=== PATIENT | male | born 1945 | race Caucasian/White ===

== ENCOUNTER 2020-06-15 06:53 | Observation (INO) ==
[2020-06-15] MEDS ORDERED: fentaNYL citrate 100 MCG/2 ML VIAL ONE (07:23)
[2020-06-15] MEDS ORDERED: MIDAZOLAM HCL 1 MG/ML 2ML VIAL ONE ×2 (07:23→09:52)
[2020-06-15] MEDS ORDERED: HEPARIN (PORCINE) 1000 UNIT/ML 10 ML (CATH LAB USE ONLY) ONE ×2 (07:23→10:16)
[2020-06-15] MEDS ORDERED: niCARdipine HCL INJ 2.5 MG/ML 10 ML AMP ONE (07:23)
[2020-06-15] MEDS ORDERED: NITROGLYCERIN/D5W 100MCG/ML 20ML SYR ONE (07:24)
--- NOTE | 2020-06-15 08:38 | Pre Anesthesia Assessment ---
Date of Service June 15, 2020 Pre Sedation Assessment Vital Signs Temp Pulse Resp BP Pulse Ox 06/15/20 07:13 36.6 C 59 L 16 190/79 H 98 Cardiovascular + regular rate and + regular rhythm + S1 normal and + S2 normal Respiratory normal respiratory effort, lungs clear to auscultation Pre-Sedation Airway Assessment Smoking Status: Former smoker Short, Thick Neck: No Oral Cavity: + WNL Mallampati Class: III ASA: ASA3 NPO Status Date of Last Intake of Fluids: 06/14/20 Time of Last Intake of Fluids: 17:30 Date of Last Intake of Solid Food: 06/14/20 Time of Last Intake of Solid Foods: 17:30 Procedure Planning Contraindications for Sedation: none Current Medications Reviewed: Yes Notes The planned sedation has been discussed with the patient. Informed Consent was obtained. I have identified the patient, determined the appropriateness of sedation and have assessed the patient immediately prior to the procedure. All medicine(s) and interventions are by my order.
--- NOTE | 2020-06-15 08:38 | History & Physical Bridge Note ---
Date of Service June 15, 2020 History & Physical Bridge Note I have examined the patient, reviewed the History & Physical and in the interval since the performance of the History & Physical I have noted the following changes of clinical significance: no changes noted
--- NOTE | 2020-06-15 09:39 | Cardiac Catheterization ---
Cardiac Cath Procedure Brief Procedure Date June 15, 2020 Pre-Procedure Diagnosis Pre-Procedure Diagnosis: Angina AUC Score AUC Score: 8 Post-Procedure Diagnosis Post-Procedure Diagnosis: Severe CAD Procedure(s) Performed Procedure(s) Performed: Coronary Angiography and Left Heart Cath Soil Analyst Robert Rosenthal MD Repairer Hairspring(s) Molina Malloy Estimated Blood Loss Estimated Blood Loss: <15cc Medication(s) Medication(s): Fentanyl (12.5 mcg IV x 2), Heparin (5000 units IV), Lidocaine 1% (Local infiltration access site), Nicardipine (250 mcg intra-arterial after arterial sheath insertion X 2) and Versed (1 mg IV) Preliminary Findings Impressions: Right dominant coronary anatomy Multivessel coronary stents present with patent stent left circumflex obtuse marginal, 40 to 50% in-stent stenosis mid right coronary artery, patent stent distal right coronary artery. Stent proximal left anterior descending with an eccentric ulcerated lesion at its proximal edge, 60% narrowing distal stent edge. [place] vessel disease with 70% mid LAD stenosis, 90% distal posterior descending artery with diffuse disease as noted below Systolic hypertension with mild elevation left end-diastolic pressure Coronary angiography: Diffuse calcification present Left main: Normal length and caliber with moderate calcification 10 to 20% mid vessel narrowing Left anterior descending: Type III in distribution. It gives rise to a large septal branch in its proximal portion to modest caliber diagonal branches in its midportion and courses to terminate beyond the apex. Within the left anterior descending there is an area of stenting in its proximal portion with an eccentric ulcerated 70 to 80% stenosis at the proximal edge of the stent. There is a 60% narrowing just distal to the stent. There is an additional 75% narrowing between the first and second diagonals. There is diffuse atherosclero sis throughout. The origin of the second diagonal is narrowed by 60% but this being a small vessel. Ramus intermedius: Modest caliber vessel narrowed by 50% at its origin Left circumflex: Moderately large but nondominant. Gives rise to a large multibranching obtuse marginal and then turns to give rise to a posterior lateral branch and an atrial branch along the AV groove. Within the left circum flex there is a 30% narrowing at its origin. The area of stenting within the proximal portion of the large obtuse marginal is widely patent. There are moderate luminal irregularities throughout Right coronary artery: Dominant distribution. Gives rise to 2 right ventricular branches in its midportion, and along the AV groove posterior descending artery and a small bifurcating posterior ventricular. There is a visible stent in the mid right coronary artery with a 50% in-stent stenosis in its midportion.. There is a widely patent stent in the distal right coronary artery proximal to its bifurcation. The distal posterior descending artery has a 90% stenosis. LV angiography: Not performed LVEDP 16-18 Recommendations: Patient will be referred for coronary mention left anterior descending, same setting Recommendations Recommendations: PCI without planned CABG Specimens Specimens: None Fluids (cc crystalloids) Fluids (cc crystalloids): 52 Anesthesia Start time: 54, stop time: 01 24 Procedural Complication(s) None Disposition PCI same setting
--- NOTE | 2020-06-15 11:32 | Cardiac Catheterization ---
Cardiac Cath Procedure Full Procedure Date June 15, 2020 Pre-Procedure Diagnosis Pre-Procedure Diagnosis: Angina AUC Score AUC Score: 8 Post-Procedure Diagnosis Post-Procedure Diagnosis: Severe CAD Procedure(s) Performed Procedure(s) Performed: Coronary Angiography and Left Heart Cath Clinical Resource Coordinator Robert Rosenthal MD Drop Hammer Setter Up(s) Molina Malloy Estimated Blood Loss Estimated Blood Loss: <15cc Medication(s) Medication(s): Fentanyl (12.5 mcg IV x 2), Heparin (5000 units IV), Lidocaine 1% (Local infiltration access site), Nicardipine (250 mcg intra-arterial after arterial sheath insertion X 2) and Versed (1 mg IV) Summary of Findings Impressions: Right dominant coronary anatomy Multivessel coronary stents present with patent stent left circumflex obtuse marginal, 40 to 50% in-stent stenosis mid right coronary artery, patent stent distal right coronary artery. Stent proximal left anterior descending with an eccentric ulcerated lesion at its proximal edge, 60% narrowing distal stent edge. [place] vessel disease with 70% mid LAD stenosis, 90% distal posterior descending artery with diffuse disease as noted below Systolic hypertension with mild elevation left end-diastolic pressure Coronary angiography: Diffuse calcification present Left main: Normal length and caliber with moderate calcification 10 to 20% mid vessel narrowing Left anterior descending: Type III in distribution. It gives rise to a large septal branch in its proximal portion to modest caliber diagonal branches in its midportion and courses to terminate beyond the apex. Within the left anterior descending there is an area of stenting in its proximal portion with an eccentric ulcerated 70 to 80% stenosis at the proximal edge of the stent. There is a 60% narrowing just distal to the stent. There is an additional 75% narrowing between the first and second diagonals. There is diffuse atherosclerosis throughout. The origin of the second diagonal is narrowed by 60% but this being a small vessel. Ramus intermedius: Modest caliber vessel narrowed by 50% at its origin Left circumflex: Moderately large but nondominant. Gives rise to a large multibranching obtuse marginal and then turns to give rise to a posterior lateral branch and an atrial branch along the AV groove. Within the left circumflex there is a 30% narrowing at its origin. The area of stenting within the proximal portion of the large obtuse marginal is widely patent. There are moderate luminal irregularities throughout Right coronary artery: Dominant distribution. Gives rise to 2 right ventricular branches in its midportion, and along the AV groove posterior descending artery and a small bifurcating posterior ventricular. There is a visible stent in the mid right coronary artery with a 50% in-stent stenosis in its midportion.. There is a widely patent stent in the distal right coronary artery proximal to its bifurcation. The distal posterior descending artery has a 90% stenosis. LV angiography: Not performed LVEDP 16-18 Recommendations: Patient will be referred for coronary mention left anterior descending, same setting Hemodynamics Rest Ao:: 178/64/108 Final Ao: 166/64/100 LV: 178/3/18 Recommendations Recommendations: PCI without planned CABG Specimens Specimens: None Radiation Exposure (mGy) 1320 Contrast (mls) 70 Fluids (cc crystalloids) Fluids (cc crystalloids): 52 Anesthesia Start time: 54, stop time: 01 24 Procedural Complication(s) None Disposition PCI same setting I attest to the content of the Intraoperative Record and any orders documented therein. Any exceptions are noted below. ACC Data: Disc Pad Grinding Machine Feeder Cardiac Status Clinical evaluation leading to the procedure Patient is a 75-year-old male with known multivessel coronary stenting last procedure 2008 with previously stable class I 2 functional capacity presented with new onset progression in anginal symptoms to class III plus despite aggressive medical therapy CAD Presenation: Stable angina Anginal Classification: CCS III (With acute change in anginal pattern) Heart Failure: No Cardiogenic Shock within 24 Hours: No Cardiac Arrest within 24 Hours: No Imaging Studies Past 6 Months: Yes Stress Studies Past 6 Months: No Standard Exercise Test: No Stress Echocardiogram: No Stress Testing w/SPECT MPI: No Cardiac CTA: No Coronary Anatomy Dominant: Right Left Main (% Stenosis): Mid (1020 with moderate calcification) LAD (% Stenosis): Proximal (7080 eccentric ulcerated plaque at proximal edge of stent) and Mid (75) D2 (% Stenosis): Ostial (60) Circumflex (% Stenosis): Ostial (30) OM1 (% Stenosis): Proximal (Widely patent stent) L PL1 (% Stenosis): Normal RCA (% Stenosis): Mid (Patent stent with 50% in-stent stenosis mid vessel) and Distal (Widely patent stent proximal to bifurcation) R PDA (% Stenosis): Mid (90 with vessel small beyond) Ramus (% Stenosis): Ostial (50 modest caliber vessel) Left Ventricular Angiography EF (%): N/A Diagnostic Physicians Name: Robert Rosenthal MD Status: Elective Closure Device Percutaneous Entry Location: Radial Recommendations: PCI without planned CABG
--- NOTE | 2020-06-15 11:34 | Post Anesthesia Assessment ---
Date of Service June 15, 2020 Post Sedation Assessment Vital Signs Temp Pulse Resp BP Pulse Ox 06/15/20 11:15 51 L 18 176/76 H 96 06/15/20 11:00 56 L 18 183/77 H 96 06/15/20 07:13 97.9 F 59 L 16 190/79 H 98 Recovery Score Activity: Moves 4 extremities Respiration: Deep Breath/Cough Circulation: +/-20% PreAnes Value Consciousness: Fully Awake Oxygen Saturation: > 92% On Room Air Post Anesthesia Score: 10 Discharge Sedation Level of Care: Fast Track Phase II Post Sedation Plan On clinical assessment, the patient appears to have tolerated the sedation without complications. Patient is recovering as anticipated. Patient will continue to be monitored by nursing and may be discharged when sedation discharge criteria are met per below protocol. Upon Completions of procedure up to 15 minutes continue every 5 minute vital signs and the P.A.R. score; then discharge to a Phase I or Fast Track to Phase II per the following guidelines: * Discharge Patient to appropriate Phase II area if PAR is 8 or greater or return to pre- procedure baseline. The post - procedure orders will be as directed. * If PAR score is less than 8 or not return to pre-procedure baseline then patient will follow Phase I monitoring till PAR is reached for Phase II. The Phase I may be done in procedure room or may call to secure a Phase I area. * If naloxone or flumazenil are used for reversal, hold in Phase I for continued monitoring from when last reversal dose was given for a minimum of 60 minutes or longer pending the nurse and/or physician discretion of patient condition before discharge to Phase II. Please call the Sedation Physician to re-evaluate and complete post-note for discharge to Phase II area. Do NOT discharge from procedure sedation or Phase 1 until post- sedation evaluation note is complete by procedure /sedation MD Sedation Discharge Instructions to be given to the patient at discharge to home.
[2020-06-15] MEDS ORDERED: ACETAMINOPHEN 325 MG TAB PO PRN (11:38)
[2020-06-15] MEDS ORDERED: NITROGLYCERIN SL 0.4 MG/TAB TAB SL PRN ×2 (11:38→12:30)
[2020-06-15] MEDS ORDERED: ONDANSETRON INJ 2 MG/ML 2 ML VIAL IV PRN (11:38)
--- NOTE | 2020-06-15 11:38 | Cardiac Catheterization ---
ACC Data: Corporate Recycling Manager Cardiac Status Clinical evaluation leading to the procedure CAD Presenation: Unstable angina Anginal Classification: CCS III Heart Failure: No Cardiogenic Shock within 24 Hours: No Cardiac Arrest within 24 Hours: No Imaging Studies Past 6 Months: No Stress Studies Past 6 Months: No Diagnostic Physicians Name: Klever Pisano MD Status: Elective Closure Device Percutaneous Entry Location: Radial Closure Device: Radial Band Recommendations: PCI without planned CABG PCI Indication: Unstable Angina Lesion Segment Name: proximal LAD Culprit Artery: Yes Stenosis Prior to Rx (%): 90 Chronic Total Occlusion: No IVUS: Yes FFR: No Pre-Procedure JEAN Flow: 3 Previously Treated Lesion: Timeframe: greater than 2 years Treated with Stent: Yes In-Stent Restenosis: Yes In-Stent Thrombosis: No Stent Type: NOLAN Yes Lesion Complexity: High/C Lesion Length (mm): 10 Thrombus Present: No Bifurcation Lesion: No Guidewire Across Lesion: Stenosis Post-Procedure (%): 70 Post-Procedure JEAN Flow: 3 Devices(s) Deployed: No Yes Lesion #2 Segment Name: mid LAD Culprit Artery: Yes Stenosis Prior to Rx (%): 60 Chronic Total Occlusion: No IVUS: No FFR: No Pre-Procedure JEAN Flow: 3 Previously Treated Lesion: No Lesion Complexity: Non-High/Non-C Lesion Length (mm): 25 Thrombus Present: No Bifurcation Lesion: Yes Guidewire Across Lesion: Yes Stenosis Post-Procedure (%): 30 Post-Procedure JEAN Flow: 3 Devices(s) Deployed: No Intraprocedure Events Significant Disection: No Perforation: No Cardiac Cath Procedure Full Procedure Date June 15, 2020 Pre-Procedure Diagnosis Pre-Procedure Diagnosis: Angina AUC Score AUC Score: 8 Post-Procedure Diagnosis Post-Procedure Diagnosis: Severe CAD and Unsuccessful PCI Procedure(s) Performed Procedure(s) Performed: Coronary Angiography, PTCA and IVUS Diet Clerk Klever Pisano MD Telecom Field Technician(s) Molina Malloy Estimated Blood Loss Estimated Blood Loss: <15cc Medication(s) Medication(s): Fentanyl (12.5 mcg IV x 2), Heparin (5000 units IV), Lidocaine 1% (Local infiltration access site), Nicardipine (250 mcg intra-arterial after arterial sheath insertion X 2) and Versed (1 mg IV) Summary of Findings Indication: Accelerating angina Access: 6 Fr right radial artery Catheters: EBU 3.5 guide Findings: For full details of patient's coronary angiography please see cath report dictated by Dr. Rosenthal. Briefly, patient found to have severe proximal LAD in-stent restenosis and moderate to severe mid LAD disease after prior stent. Decision to proceed with PCI. -- PCI -- Antithrombotic therapy: Heparin, clopidogrel Procedure: Left main cannulated with EBU 3.5 guide [place] wire placed into distal circumflex BMW wire passed across lesion into distal LAD [place] IVUS catheter placed into mid circumflex. Pullback revealed moderate eccentric calcified plaque at ostium (MLA 5.7 mm) [place] IVUS catheter then placed into LAD. Unable to pass proximal LAD in- stent restenosis. Ostium of LAD patent, left main without significant disease. Mid LAD lesion dilated with 2.5 compliant balloon Proximal LAD in-stent restenosis balloon with 2.5 compliant balloon but did not fully expand Further attempts at dilation with 3.0 NC balloon, 3.0 angiosculpt but lesion would not fully expand despite high atmosphere inflations. Patient remained chest pain-free, had JEAN-3 flow with no evidence of dissection. Decision made to abort further attempts at dilation or stenting. Arterial Closure: TR band Summary: 1. Unsuccessful PCI of proximal LAD in-stent restenosis due to inability to fully expand in-stent disease despite multiple high-pressure balloon inflations with noncompliant and cutting balloons. Residual stenosis 70%. 2. Angioplasty of mid LAD after prior stent with 2.5 balloon. Residual 30 to 40% disease at takeoff of small to medium caliber second diagonal with severe ostial stenosis. 3. Moderate ostial circumflex disease with eccentric, calcified plaque by IVUS. Recommendations: To PCU for continued monitoring Loaded with Clopidogrel 600mg Continue dual-antiplatelet therapy for at least 1 month Recommend maximizing antianginal therapy. If refractory symptoms consider PCI at tertiary center with atherectomy versus CABG evaluation. Hemodynamics Rest Ao:: 178/69/108 Final Ao: 180/76/142 LV: -- Recommendations Recommendations: PCI without planned CABG Specimens Specimens: None Radiation Exposure (mGy) -- Contrast (mls) 100 Anesthesia moderate Procedural Complication(s) None Disposition PCI same setting I attest to the content of the Intraoperative Record and any orders documented therein. Any exceptions are noted below. Personal Estate Manager Card Cath Procedure Codes Therapeutic Services & Ancillary Proc Procedure 1: Cardiovascular Tx and Anc Procedures: 32610 IV Ultrasound (Coronary or Graft) Procedure 2: Cardiovascular Tx and Anc Procedures: 78067 IV Ultrasound Ea addl vessel Moderate Sedation Procedure 1: Sedation/Anesthesia: 83493 Mod Sedation by the same physician; Ea [id number] Minutes Angioplasty Procedure 1: Cardiovascular Angioplasty Procedures: 95975 PTCA; Single mafor coronary artery or branch RC LC LD PG Care Time/CCT Total # of Minutes Spent Total Time Spent with Patient: Total time spent is greater than 50% in coordination of care (as documented) at patient's floor/unit and/or counseling patient:
[2020-06-15] MEDS ORDERED: CLOPIDOGREL BISULFATE 300 MG TAB PO STA (11:44)
[2020-06-15] MEDS ORDERED: SODIUM CHLORIDE 0.9% 1000ML 1,000 ML IV SCH (11:45)
[2020-06-15] MEDS ORDERED: CYCLOBENZAPRINE HCL 10 MG TAB PO PRN (12:25)
--- NOTE | 2020-06-15 13:05 | Electrocardiogram Report ---
Test Reason : Blood Pressure : / mmHG Vent. Rate : 049 BPM Atrial Rate : 049 BPM P-R Int : 180 ms QRS Dur : 086 ms QT Int : 468 ms P-R-T Axes : 046 -13 048 degrees QTc Int : 422 ms Sinus bradycardia Otherwise normal ECG When compared with ECG of 31-OCT-2007 09:47, Vent. rate has decreased BY [address] no longer depressed in Anterolateral leads Nonspecific T wave abnormality no longer evident in Inferior leads Confirmed by Dave Calle ([id number]) on 06/15/2020 1:05:45 PM Referred By: Robert Rosenthal Confirmed By:Dave Calle
[2020-06-15] MEDS ORDERED: allopurinoL 300 MG TAB PO ONE (14:15)
[2020-06-15] MEDS ORDERED: ASPIRIN 81 MG ECTAB PO ONE (14:15)
[2020-06-15] MEDS ORDERED: amLODIPine BESYLATE 5 MG TAB PO ONE (14:15)
[2020-06-15] MEDS ORDERED: PANTOprazole 40 MG TAB PO ONE (14:15)
[2020-06-15] MEDS ORDERED: PRAVASTATIN SOD 40 MG TAB PO ONE (14:15)
[2020-06-15] MEDS ORDERED: VERAPAMIL HCL 120 MG TABCR PO ONE (14:15)
[2020-06-15] MEDS ORDERED: LOSARTAN POTASSIUM 50 MG TAB PO ONE (14:15)
[2020-06-15] MEDS: KETOCONAZOLE 2% CR 15 GM TUBE EXT SCH (15:05)
[2020-06-15] MEDS ORDERED: hydrALAZINE HCL 20 MG/ML VIAL ONE (17:21)
[2020-06-15] MEDS ORDERED: hydrALAZINE HCL 20 MG/ML VIAL IV PRN (17:24)
[2020-06-15] MEDS ORDERED: TERAZOSIN HCL 5 MG CAP PO SCH (21:00)
[2020-06-16 06:16] LABS: Basophils # (auto) 0.02 K/uL (0-0.2); Basophils % (auto) 0.5 %; Eosinophils # (auto) 0.08 K/uL (0-0.5); Eosinophils % (auto) 1.9 %; Hematocrit (blood only) 37.6 % (42-52); Hemoglobin 12.9 g/dL (14.0-18.0); Lymphocytes # (auto) 1.76 K/uL (1.2-3.4); Lymphocytes % (auto) 41.9 %; Mean Corpuscular Hemoglobin 31.5 pg (25-34); Mean Corpuscular Hgb Conc 34.3 g/dL (32-36); Mean Corpuscular Volume 91.7 fL (80-100); Mean Platelet Volume 10.3 fL (7.4-10.4); Monocytes # (auto) 0.46 K/uL (0.11-0.59); Neutrophils # (auto) 1.88 K/uL (1.4-6.5); Neutrophils % (auto) 44.7 %; Platelet Count 190 K/uL (130-400); RDW Coefficient of Variation 12.9 % (11.5-14.5); RDW Standard Deviation 43.4 fL (36.4-46.3)
[2020-06-16 06:54] LABS: Calcium 8.3 mg/dl (8.5-10.1); Creatinine Clr Calc Pharmacy 75.7 ml/min; Est GFR (African American) 86.5; Est GFR (Non-African American) 74.6; Potassium 3.3 mmol/L (3.5-5.1)
[2020-06-16] MEDS: KETOCONAZOLE 2% CR 15 GM TUBE EXT SCH (08:04)
[2020-06-16] MEDS ORDERED: VERAPAMIL HCL 120 MG TABCR PO SCH (09:00)
[2020-06-16] MEDS ORDERED: LOSARTAN POTASSIUM 50 MG TAB PO SCH (09:00)
[2020-06-16] MEDS ORDERED: allopurinoL 300 MG TAB PO SCH (09:00)
[2020-06-16] MEDS ORDERED: amLODIPine BESYLATE 5 MG TAB PO SCH (09:00)
[2020-06-16] MEDS ORDERED: PANTOprazole 40 MG TAB PO SCH (09:00)
[2020-06-16] MEDS ORDERED: CLOPIDOGREL BISULFATE 75 MG TAB PO SCH (09:00)
[2020-06-16] MEDS ORDERED: PRAVASTATIN SOD 40 MG TAB PO SCH (09:00)
[2020-06-16] MEDS ORDERED: FUROSEMIDE 40 MG TAB PO SCH (09:00)
[2020-06-16] MEDS ORDERED: ASPIRIN 81 MG ECTAB PO SCH (09:00)
[2020-06-16] MEDS ORDERED: ENOXAPARIN INJ 40 MG/0.4 ML SYR SQ SCH (12:00)
--- NOTE | 2020-06-23 13:06 | Discharge Summary ---
Admission HPI Per Admitting Provider SUBJECTIVE: Rubén Man is a 75 year old year old male Cardiac history includes 1. Atherosclerotic coronary disease status post multivessel coronary interventions with drug-eluting stents to the LAD, right coronary artery, left circumflex, and obtuse marginal in October of 2007. 2. Repeat coronary intervention with re stenoses of the LAD with drug-eluting stent to the LAD in 2008. 3. Stable class I-II angina pectoris. 4. Long-standing labile hypertension. 5. Obstructive sleep apnea on CPAP supplementation. 6. Hyperlipidemia. 7. Psoriatic arthritis. 8. Paroxysmal SVT 9. Borderline dilated aortic root at 4.0 and dilated ascending aorta at 4.2 cm. 10. Bradycardia with mild chronotropic incompetence on verapamil Patient presents today in in follow-up. He notes change in overall exercise capacity over the last 1 months time. Begin experiencing chest tightness and shortness of breath when walking on a treadmill after only a few minutes and discontinued treadmill exercise activities due to complaints. Symptoms continue to be intermittently present with exertion. No rest pains. No syncope or near syncope. No tachy palpitations orthopnea PND or peripheral edema. No fevers chills or unexplained infections. No bleeding difficulties. No melena hematochezia dysuria hematuria. Appetite and weight have been generally stable. Blood pressures have been well controlled. Admission Exam (Per Admitting) Constitutional WD/WN, vitals as above Eyes PERRL, conjunctivae normal, anicteric sclerae ENMT external ear and nose normal, oropharynx normal Neck trachea midline, no thyromegaly Respiratory normal respiratory effort, lungs clear to auscultation Cardiovascular Rate/Rhythm: regular rate and regular rhythm Heart Sounds: normal S1, normal S2 and + murmur (Grade 1-2/6 systolic murmur); no gallop Palpation: normal PMI Vessels: normal carotid upstroke and radial pulses present; no JVD and no carotid bruit Extremities: no edema Gastrointestinal (Abdomen) normal bowel sounds, soft, nontender, no hepatosplenomegaly Musculoskeletal no cyanosis or clubbing, extremities motor strength 5/5 Skin no rashes, warm and dry Neurologic PERRL, EOMI, accommodation nl, no face palsy, no dysarthria Psychiatric A+Ox3, euthymic affect Specialty Data Specialty Data Coronary angiography with left heart catheterization Impressions: Right dominant coronary anatomy Multivessel coronary stents present with patent stent left circumflex obtuse marginal, 40 to 50% in-stent stenosis mid right coronary artery, patent stent distal right coronary artery. Stent proximal left anterior descending with an eccentric ulcerated lesion at its proximal edge, 60% narrowing distal stent edge. Torres Martinez vessel disease with 70% mid LAD stenosis, 90% distal posterior descending artery with diffuse disease as noted below Systolic hypertension with mild elevation left end-diastolic pressure Coronary angiography: Diffuse calcification present Left main: Normal length and caliber with moderate calcification 10 to 20% mid vessel narrowing Left anterior descending: Type III in distribution. It gives rise to a large septal branch in its proximal portion to modest caliber diagonal branches in its midportion and courses to terminate beyond the apex. Within the left anterior descending there is an area of stenting in its proximal portion with an eccentric ulcerated 70 to 80% stenosis at the proximal edge of the stent. There is a 60% narrowing just distal to the stent. There is an additional 75% narrowing between the first and second diagonals. There is diffuse atherosclerosis throughout. The origin of the second diagonal is narrowed by 60% but this being a small vessel. Ramus intermedius: Modest caliber vessel narrowed by 50% at its origin Left circumflex: Moderately large but nondominant. Gives rise to a large multibranching obtuse marginal and then turns to give rise to a posterior lateral branch and an atrial branch along the AV groove. Within the left circumflex there is a 30% narrowing at its origin. The area of stenting within the proximal portion of the large obtuse marginal is widely patent. There are moderate luminal irregularities throughout Right coronary artery: Dominant distribution. Gives rise to 2 right ventricular branches in its midportion, and along the AV groove posterior descending artery and a small bifurcating posterior ventricular. There is a visible stent in the mid right coronary artery with a 50% in-stent stenosis in its midportion.. There is a widely patent stent in the distal right coronary artery proximal to its bifurcation. The distal posterior descending artery has a 90% stenosis. LV angiography: Not performed LVEDP 16-18 Coronary intervention Summary: 1. Unsuccessful PCI of proximal LAD in-stent restenosis due to inability to fully expand in-stent disease despite multiple high-pressure balloon inflations with noncompliant and cutting balloons. Residual stenosis 70%. 2. Angioplasty of mid LAD after prior stent with 2.5 balloon. Residual 30 to 40% disease at takeoff of small to medium caliber second diagonal with severe ostial stenosis. 3. Moderate ostial circumflex disease with eccentric, calcified plaque by IVUS. Recommendations: To PCU for continued monitoring Loaded with Clopidogrel 600mg Continue dual-antiplatelet therapy for at least 1 month Recommend maximizing antianginal therapy. If refractory symptoms consider PCI at tertiary center with atherectomy versus CABG evaluation. Discharge Data Consultations 06/15/20 11:44 Consult Cardiac Rehabilitation Routine Procedures Performed Operation Date: 06/15/20 08:00 Actual Procedures p Cath, Left with Cors and Vent - MD jame Redmond POBA SGL Vessel - MD jame Redmond IVUS Coronary Single Vessel - MD jame Redmond IVUS Coronary each ADDL Vessel - MD jame Redmond Cineradiography w/Routine Exam - Olayinka Pisano MD Hospital Course (1) CAD in [place] artery: The patient was referred and underwent diagnostic coronary angiography due to increasing angina pectoris. study demonstrated culprit lesions of ulcerated proximal left anterior descending stenosis with diffuse coronary disease as described. Patient was referred for coronary intervention in same setting however coronary invention not able to be completely performed due to heavy calcification. Inability to expand balloon. Patient was treated anti-platelet therapy postprocedure observed until next morning given coronary intervention without complication. The results of cardiac catheterization and coronary mention were discussed in detail and options of management reviewed. After discussion patient and physician agreed for cardiovascular surgery referral. Patient is discharged home in stable condition with planned outpatient surgical evaluation on June 23, 2020, [facility] (2) Angina pectoris:
== END 2020-06-16 12:03 | disposition home or self-care (01) ==
LOC: CC 06:53 → 2S 06:53